=== PATIENT | female | born 1990 | race Two or more races ===

== ENCOUNTER 2020-04-08 19:49 | Emergency (ER) | payer MEDICAID, OTHER ==
[~2020-04-08] VITALS: Ht 157.5 cm; Wt 86.2 kg
[2020-04-08] MEDS ORDERED: KETOROLAC TROMETH 60MG/2ML VIAL IM ONE (23:30)
[2020-04-09 02:03] VITALS: BP 106/70
== END 2020-04-09 01:42 | disposition home or self-care (01) ==
LOC: ER 19:49
DX: S93.401A Sprain of unspecified ligament of right ankle, initial encounter (principal); S86.911A Strain of unspecified muscle(s) and tendon(s) at lower leg level, right leg, initial encounter; X37.1XXA Tornado, initial encounter; Y93.31 Activity, mountain climbing, rock climbing and wall climbing; Y92.89 Other specified places as the place of occurrence of the external cause; Y99.8 Other external cause status
CPT/HCPCS: 73562; 73610; 96372; 99284; J1885